=== PATIENT | female | born 1995 | race Caucasian/White ===

== ENCOUNTER 2017-04-21 13:40 | Emergency (ER) | payer OTHER, MEDICARE ==
[~2017-04-21] VITALS: Ht 157.5 cm; Wt 73.5 kg
[~2017-04-21 13:40] MED LIST: A/B OTIC 54 MG/15 ML OT; ANTIPYRINE & BE10 ML OTIC; PRILOSEC OTC20 MG PO; ZOFRAN ODT4 MG PO
--- NOTE | 2017-04-21 13:53 | ED UPPER/LOWER EXTREMITY COMPL ---
History of Present Illness General Chief Complaint: Foot or Ankle Injury Stated Complaint: RT KNEE DISLOCATION Source: patient Exam Limitations: no limitations Vital Signs & Intake/Output Vital Signs & Intake/Output Vital Signs Date Time Temp Pulse Resp B/P B/P Pulse O2 O2 Flow FiO2 Mean Ox Delivery Rate 04/21 1547 98.3 78 16 131/78 99 Room Air 04/21 1353 97.2 80 18 147/82 100 Room Air Allergies Coded Allergies: NO KNOWN ALLERGIES (04/21/17) Triage Note: 21 Y/O FEMALE RAINE FROM [employer] FOR RT KNEE DISLOCATION. PT STS HAS HX OF RT KNEE "GIVING OUT" AND TODAY SHE WENT TO SIT DOWN AND HEARD HER KNEE POP. PT ARRIVES A/O X3 AND STS PAIN IS 10/10. PT STS NO OTHER COMPLAINTS AND LYN FRY AT BEDSIDE TO EVAL PT Triage Nurses Notes Reviewed? yes Onset: Just prior to arrival Duration: minute(s): (20) Timing: no prior history Severity: severe Severity Numbers: 10 Pain/Injury Location: Right: Knee. Method of Injury: twisted Modifying Factors: Improves With: immobilization. Worsens With: movement. HPI: Patient is a 21-year-old female presenting to the emergency department with chief complaint of right knee pain that started suddenly prior to arrival. Patient reports that she twisted she was pushing her chair back again and her knee gave out. She was unable to get up. She notices the knee deformity. They called EMS and brought to the emergency department for evaluation. Pain is currently severe, 10 out of 10 and nonradiating. Denies numbness or tingling. No history of similar injury in the past. Denies taking anything for pain prior to arrival. (Chely Gloria) Past History Medical History Any Pertinent Medical History? see below for history Surgical History Surgical History: non-contributory Psychosocial History What is your primary language Macanese Family History Hx Contributory? No (Chely Gloria) Review of Systems Review of Systems Constitutional: Reports: no symptoms. Comments Review of systems: See HPI, All other systems negative. Constitutional, no chills fever or weight loss HEENT: No visual changes no sore throat no congestion Cardiovascular: No chest pain ,palpitation Skin, no jaundice no rashes Respiratory: No dyspnea cough sputum or hemoptysis GI: No nausea no vomiting Muscle skeletal: no back pain, no neck pain, Neurologic: No numbness Immunology: No splenectomy or history of AIDS (Tito NICHOLSON,Chely) Physical Exam Physical Exam General Appearance: well developed/nourished, no apparent distress, alert, awake , comfortable Comments: Well-developed well-nourished person in no acute distress HEENT: Atraumatic, normocephalic. Neck: Normal inspection Cardiovascular: Regular rate and rhythms no murmurs rubs or gallops, normal JVP Respiratory: Chest nontender. No respiratory distress.breath sounds clear to auscultation bilaterally Extremity: Obvious right patellar deformity, patella appears to be more lateral. Limited range of motion of right lower leg with pain at the right knee. Full range of motion of right foot, all the toes on the right foot. Pedal pulses and popliteal pulses are 2+ bilaterally. Full range of motion of left lower extremities without difficulty or pain. Neuro: Alert oriented x3, motor sensory normal Skin: No appreciable rash on exposed skin, skin is warm and dry. Psych: Mood and affect is normal, memory and judgment is normal. (Tito NICHOLSON,Chely) Progress Differential Diagnosis: contusion, dislocation, fracture, sprain, tendon injury Plan of Care: Orders Procedure Date/time Status Durable Medical Equipment 04/21 135 Active X-ray shows partial subluxation. Patient reports that her kneecap is pretty mobile at baseline. Patient has full range of motion of right knee. Pulses are intact. neurovascularly intact. Patient will follow-up with orthopedics. Diagnostic Imaging: Viewed by Me: Radiology Read. Discussed w/RAD: Radiology Read. Radiology Impression: PATIENT: AMY ENCISO PRESENT AGE: 21 PATIENT ACCOUNT NO: [id number] : 94 LOCATION: [facility] ORDERING PHYSICIAN: Chely NICHOLSON SERVICE DATE: 04/21/17-1353 EXAM TYPE: RAD - XRY-KNEE COMPLETE RIGHT EXAMINATION: XR KNEE, RIGHT CLINICAL INFORMATION: Dislocated patella, post reduction. COMPARISON: 06/01/2011. TECHNIQUE: Four views of the right knee. FINDINGS: The position of the patella on the frontal and lateral views suggests residual lateral subluxation of the patella. Of note, the alignment is substantially different considering the patellofemoral alignment on the current study compared to the previous images of 06/03/2011. A small amount of fluid in the posterior aspect of the patella is noted. Both quadriceps and patellar tendons are visualized and are unremarkable. No cortical defects are noted throughout the bony structures to suggest acute fracture. IMPRESSION: Findings suggestive of residual lateral subluxation of the patella. Confirmation of the position of the patella with relation to the patellofemoral joint can be achieved on a dedicated patellar view. DICTATED BY: Sara Salazar MD DATE/TIME DICTATED:04/21/171438 CREEL HAND:FAMILIA DATE/ TIME TRANSCRIBED:04/21/171438 CONFIDENTIAL, DO NOT COPY WITHOUT APPROPRIATE AUTHORIZATION. <Electronically signed in Other Vendor System> SIGNED BY: Sara Salazar MD 04/21/17 8532 (Chely Gloria) Departure Departure Time of Disposition: 1508 Disposition: HOME OR SELF CARE Condition: Stable Clinical Impression Primary Impression: Patellar dislocation Qualifiers: Encounter type: initial encounter Laterality: right Qualified Code: S83.004A - Unspecified dislocation of right patella, initial encounter Referrals: Grace Noguera DO (PCP/Family) Barbara HERNÁNDEZ,Scotty Adan Additional Instructions: Follow-up with orthopedics, call to make an appointment next 1-2 days. Wear knee immobilizer to help stabilize the knee. Keep weight off of the right lower extremity. Use crutches as directed. Take [id number] Motrin and Tylenol for any aches or pains. Ice affected area. Avoid any sudden movements or heavy lifting. Departure Forms: Customer Survey General Discharge Information (Chely Gloria) PA/CUSTOMER RELATIONSHIP SPECIALIST Co-Sign Statement Statement: ED Attending supervision documentation- [] I saw and evaluated the patient. I have also reviewed all the pertinent lab results and diagnostic results. I agree with the findings and the plan of care as documented in the PA's/CUSTOMER RELATIONSHIP SPECIALIST's documentation. [X] I have reviewed the ED Record and agree with the PA's/CUSTOMER RELATIONSHIP SPECIALIST's documentation. [] Additions or exceptions (if any) to the PAs/CUSTOMER RELATIONSHIP SPECIALIST's note and plan are summarized below: [] (Andrew HERNÁNDEZ,Bonifacio Rust) Procedures Splinting Location: right knee Manual Alignment Performed: Yes Pre-Made Type: knee imobilizer Splint Applied By: splint applied by other (nursing) Pre-Proc Neuro Vasc Exam: normal Post-Proc Neuro Vasc Exam: normal Progress: Tolerated procedure well Joint Reduction Joint Reduction Site: patella (R) Conscious Sedation: none Reduction Attempts: 1 Pre-Procedure NV Exam: Yes Post-Procedure NV Exam: Yes Post Joint Reduction Film: joint reduced Progress: Tolerated procedure well. (Tito NICHOLSON,Chely)
--- NOTE | 2017-04-21 14:47 | RADIOLOGY REPORT ---
EXAMINATION: XR KNEE, RIGHT CLINICAL INFORMATION: Dislocated patella, post reduction. COMPARISON: 06/01/2011. TECHNIQUE: Four views of the right knee. FINDINGS: The position of the patella on the frontal and lateral views suggests residual lateral subluxation of the patella. Of note, the alignment is substantially different considering the patellofemoral alignment on the current study compared to the previous images of 06/03/2011. A small amount of fluid in the posterior aspect of the patella is noted. Both quadriceps and patellar tendons are visualized and are unremarkable. No cortical defects are noted throughout the bony structures to suggest acute fracture. IMPRESSION: Findings suggestive of residual lateral subluxation of the patella. Confirmation of the position of the patella with relation to the patellofemoral joint can be achieved on a dedicated patellar view.
[2017-04-21 15:47] VITALS: BP 131/78
== END 2017-04-21 15:47 ==
LOC: ERH 13:40
DX: S83.011A Lateral subluxation of right patella, initial encounter (principal); X58.XXXA Exposure to other specified factors, initial encounter; Y92.9 Unspecified place or not applicable; Y93.9 Activity, unspecified
CPT/HCPCS: 73562-RT